=== PATIENT | male | born 1975 | race African-American/Black ===

== ENCOUNTER 2019-05-24 09:20 | Emergency (ER) | payer OTHER ==
[2019-05-24 09:51] VITALS: BP 129/81; PULSE 87; TEMP 98.7; BMI 27.0
[2019-05-24] MEDS ORDERED: ACETAMINOPHEN 160 MG/5 ML *Children Solution PO ONE (10:23)
[2019-05-24] MEDS ORDERED: ACETAMINOPHEN 650 MG/20.3 ML ORAL SOLUTION (CUPS) ONE (10:29)
--- NOTE | 2019-05-24 10:30 | PDOC ---
History of Present Illness - General Chief Complaint: Injury Stated Complaint: LT ARM INJURY Time Seen by Provider: 05/24/19 10:18 History Source: Patient Exam Limitations: Other (autistic, mental retardation, non verbal ) - History of Present Illness Initial Comments: 05/24/19 10:25 44 year old male with history of autism, mental retardation and non verbal brought in by sister for injury to left forearm since Friday. As per sister, she was accidentally hit with a stick in the park while he was reaching for a ball. Swelling and pain since incident. Occurred: reports: yesterday Severity: reports: mild Upper Extremity Pain Location: left: forearm Method of Injury: reports: direct blow Modifying Factors: improves with: immobilization Extremity Pain Location - Extremity Pain Location Extremity Pain Locations: left: forearm Past History - Travel Traveled outside of the country in the last 30 days: No Close contact w/someone who was outside of country & ill: No - Past Medical History Allergies/Adverse Reactions: Allergies Allergy/AdvReac Type Severity Reaction Status Date / Time No Known Allergies Allergy Verified 05/24/19 09:50 Home Medications: Ambulatory Orders Ibuprofen 600 mg PO TID #30 tablet 05/24/19 COPD: No - Suicide/Smoking/Psychosocial Hx Smoking History: Never smoked Information on smoking cessation initiated: No Hx Alcohol Use: No Drug/Substance Use Hx: No Review of Systems - Review of Systems Able to Perform ROS?: Yes Is the patient limited [place] proficient: No Constitutional: No: Chills, Fever, Weakness HEENTM: No: Nose Pain, Throat Pain, Throat Swelling Respiratory: No: Shortness of Breath, SOB at Rest, Stridor Cardiac (ROS): No: Chest Pain, Lightheadedness, Palpitations ABD/GI: No: Poor Appetite, Abdominal cramping Musculoskeletal: Yes: Joint Pain, Joint Swelling. No: Back Pain Integumentary: No: Erythema Neurological: No: Numbness, Paresthesia *Physical Exam - Vital Signs Last Vital Signs Temp Pulse Resp BP Pulse Ox 98.7 F 87 17 129/81 98 05/24/19 09:49 05/24/19 09:49 05/24/19 09:49 05/24/19 09:49 05/24/19 09:49 - Physical Exam General Appearance: Yes: Nourished, Appropriately Dressed HEENT: positive: TMs Normal, Pharynx Normal Neck: positive: Supple. negative: Lymphadenopathy (R), Lymphadenopathy (L) Respiratory/Chest: positive: Lungs Clear Cardiovascular: positive: Regular Rhythm, Regular Rate Musculoskeletal: positive: Normal Inspection Extremity: positive: Tender, Inflammation, Other (right forearm with swelling, and tenderness ) Neurologic: positive: Fully Oriented, Normal Mood/Affect ED Treatment Course - RADIOLOGY Radiology Studies Ordered: Category Date Time Status FOREARM- LEFT [RAD] Stat Radiology 05/24/19 10:23 Ordered Medical Decision Making - Medical Decision Making 05/24/19 10:30 44 year old male with history of autism, mental retardation and non verbal brought in by sister for injury to left forearm since Friday. As per sister, she was accidentally hit with a stick in the park while he was reaching for a ball. left arm injury -xray of left arm -analgesia ordered 05/24/19 12:56 wet read ulnar non displaced fracture ulnar head avulsed fracture ; possibly not acute splint applied referred to ortho ibuprofen prescibed for pain *DC/Admit/Observation/Transfer Diagnosis at time of Disposition: Ulna fracture Qualifiers: Encounter type: initial encounter Ulna location: shaft Fracture type: closed Fracture morphology: unspecified fracture morphology Laterality: left Qualified Code(s): S52.202A - Unspecified fracture of shaft of left ulna, initial encounter for closed fracture - Discharge Dispostion Disposition: HOME Condition at time of disposition: Good Decision to Admit order: No - Prescriptions Prescriptions: Ibuprofen 600 mg PO TID #30 tablet - Referrals Referrals: Nithya Gomez MD [Primary Care Provider] - (call for appointment ) Chencho Thao MD [Staff Physician] - (call for appointment ) - Patient Instructions Printed Discharge Instructions: How to Use a Sling, Forearm Fracture Additional Instructions: Please use sling when up and about Please do not remove splint from arm Call orthopedic for appointment elevate arm when at rest Return for swelling or discoloration of fingers - Post Discharge Activity Forms/Work/School Notes: Back to School
== END 2019-05-24 13:22 | disposition home or self-care (01) ==
LOC: JERFT 09:20
PROC: 2W39X1Z Immobilization of Left Upper Extremity using Splint (ICD-10-PCS; principal; 2019-05-24)
DX: S52.292A Other fracture of shaft of left ulna, initial encounter for closed fracture (principal); W22.8XXA Striking against or struck by other objects, initial encounter; Y93.89 Activity, other specified; Y92.830 Public park as the place of occurrence of the external cause; Y99.8 Other external cause status; F84.0 Autistic disorder; F78 Other intellectual disabilities
CPT/HCPCS: 29126; 73090-TC-LT-FY; 99281-25

== ENCOUNTER 2021-06-12 07:36 | Emergency (ER) | payer OTHER ==
[2021-06-12 08:12] VITALS: BP 128/88; PULSE 78; TEMP 98; BMI 27.3
[2021-06-12] MEDS ORDERED: IBUPROFEN 600 MG TABLET (FP) PO ONE ×2 (08:23→08:40)
== END 2021-06-12 09:00 | disposition home or self-care (01) ==
LOC: JERFT 07:36 → JER 07:36 → JERFT 09:00
DX: M25.511 Pain in right shoulder (principal)
CPT/HCPCS: 73030-TC-RT-FY; 99284-25